=== PATIENT | female | born 1965 | race Caucasian/White ===

== ENCOUNTER 2018-02-14 08:02 | Emergency (ER) | payer OTHER ==
[~2018-02-14] VITALS: Ht 167.6 cm; Wt 99.7 kg
[~2018-02-14 08:02] MED LIST: Augmentin PO; BENADRYL25 MG PO; IMITREX50 MG PO; NOHOMEMEDS; PEPCID20 MG PO; TOPAMAX50 MG PO; TRAMADOL HCL50 MG PO
[2018-02-14 09:23] LABS: HEMATOCRIT 40.9 % (36.0-46.0); HEMOGLOBIN 13.6 G/DL (11.9-15.5); MCH 28.3 PG (29.0-34.0); MCHC 33.3 G/DL (30.0-36.0); PLATELET COUNT 257 K/uL (156-360); RBC DIS.WIDTH-CV 13.3 % (11.8-14.6); RBC DIS.WIDTH-SD 41.5 % (39-53); RED BLOOD COUNT 4.81 M/uL (3.80-5.20); WHITE BLOOD COUNT 7.7 K/uL (4.1-10.2)
[2018-02-14 09:39] LABS: CHLORIDE 108 mEq/L (99-109); POTASSIUM 3.9 mEq/L (3.7-5.4); SODIUM 141 mEq/L (136-147)
[2018-02-14 09:40] LABS: GLUCOSE 110 mg/dL (70-99)
[2018-02-14 09:44] LABS: CREATININE 0.7 mg/dL (0.6-1.3); GFR ESTIMATE (CALCULATED) > 59 mL/min/
[2018-02-14 09:45] LABS: UREA NITROGEN (BUN) 17 mg/dL (9-23)
[2018-02-14 10:24] LABS: TROP-I INTERPRETATION NEGATIVE; TROPONIN-I < 0.01 ng/mL (0.0-0.30)
[2018-02-14] MEDS ORDERED: FLONASE16 G1 BOTH NARES (10:50)
[2018-02-14] MEDS ORDERED: ANTIVERT25 MG PO (10:50)
[2018-02-14 11:07] VITALS: BP 137/93
== END 2018-02-14 11:09 | disposition home or self-care (01) ==
LOC: EME 08:02
PROVIDERS: Nurse Practitioner Family
DX: R42 Dizziness and giddiness (principal); R00.1 Bradycardia, unspecified; H69.82 Other specified disorders of Eustachian tube, left ear; R94.31 Abnormal electrocardiogram [ECG] [EKG]; J32.2 Chronic ethmoidal sinusitis; I10 Essential (primary) hypertension; G43.909 Migraine, unspecified, not intractable, without status migrainosus; R56.9 Unspecified convulsions; Z79.891 Long term (current) use of opiate analgesic; Z88.6 Allergy status to analgesic agent
CPT/HCPCS: 70450; 80048; 84484; 85027; 93005; 99281; 99284